=== PATIENT | male | born 1960 | race Caucasian/White ===

== ENCOUNTER 2018-01-01 17:07 | Inpatient (IN) | payer OTHER ==
[~2018-01-01] VITALS: Ht 170.2 cm; Wt 69.3 kg
[2018-01-01] MEDS ORDERED: ASPIRIN 81 MG CHEWABLE TABLET PO ONE (19:15)
[2018-01-01 19:17] LABS: BASOPHILS % (AUTO) 0.3 % (0.0-2.0); EOSINOPHILS % (AUTO) 0.9 % (1.0-6.0); HEMATOCRIT 41.4 % (41-53); HEMOGLOBIN 14.6 g/dL (13.5-17.5); LYMPHOCYTES # (AUTO) 2.7 K/uL (1.0-4.8); LYMPHOCYTES % (AUTO) 38.3 % (22.0-44.0); MEAN CORPUSCULAR HEMOGLOBIN 31.1 pg (26.0-34.0); MEAN CORPUSCULAR HGB CONC 35.2 G/dL (31.0-37.0); MEAN CORPUSCULAR VOLUME 88 fL (80-100); MONOCYTES # (AUTO) 0.5 K/uL (0.1-1.0); MONOCYTES % (AUTO) 7.1 % (2.0-9.0); NEUTROPHILS # (AUTO) 3.8 K/uL (1.8-7.7); NEUTROPHILS % (AUTO) 53.4 % (40.0-70.0); PLATELET COUNT (AUTO) 328 K/uL (150-450); RED BLOOD CELL COUNT(AUTO) 4.69 MIL/uL (4.50-5.90)
[2018-01-01 19:23] LABS: APPEARANCE,URINE CLEAR (CLEAR); BILIRUBIN,URINE NEGATIVE (NEGATIVE); GLUCOSE, URINE (UA) NEGATIVE (NEGATIVE); KETONES,URINE NEGATIVE (NEGATIVE); LEUKOCYTE ESTERASE ,URINE NEGATIVE (NEGATIVE); NITRATE,URINE NEGATIVE (NEGATIVE); OCCULT BLOOD,URINE NEGATIVE (NEGATIVE); PH,URINE 6.5 (5.0-8.0); PROTEIN,URINE NEGATIVE (NEGATIVE); UROBILINOGEN,URINE 0.2 mg/dL (<=1.0)
[2018-01-01 19:27] LABS: ANION GAP 11 mmol/L (8-16); CALCIUM, TOTAL 9.4 mg/dL (8.8-10.5); CARBON DIOXIDE 26 mmol/L (22-29); CHLORIDE 104 mmol/L (98-107); CREATININE 0.82 mg/dL (0.60-1.30); GLOMERULAR FILTR. RATE CALC > 60 mL/min (>60); GLUCOSE,RANDOM 86 mg/dL (70-110); POTASSIUM 3.6 mmol/L (3.5-5.1); SODIUM SERUM 141 mmol/L (136-145); UREA NITROGEN, BLOOD 13 mg/dL (7-18)
[2018-01-01 19:41] LABS: B-TYPE NATRIURETIC PEPTIDE 24 pg/mL (0-100)
[2018-01-01 19:51] LABS: ALANINE AMINOTRANSFERASE 24 U/L (12-78); ALBUMIN 3.9 g/dL (3.4-5.0); ALKALINE PHOSPHATASE 68 U/L (46-116); ASPARTATE AMINOTRANSFERASE 18 U/L (15-37); BILIRUBIN,TOTAL 0.3 mg/dL (0.1-1.0); CREATINE KINASE MB 2.5 ng/mL (0-5); CREATINE KINASE, TOTAL 250 U/L (39-308); TOTAL PROTEIN, SERUM 7.9 g/dL (6.4-8.2)
[2018-01-01] MEDS ORDERED: AMLO-512 PO (20:05)
[2018-01-01] MEDS ORDERED: LISI-618 PO (20:05)
[2018-01-01] MEDS ORDERED: ACETAMINOPHEN 325 MG TABLET PO PRN (21:45)
[2018-01-01] MEDS ORDERED: ONDANSETRON HCL 4 MG/2 ML VIAL IVP PRN ×2 (21:45→22:45)
[2018-01-01] MEDS ORDERED: 0.9% SODIUM CHLORIDE 10 ML SYRINGE IVP PRN ×2 (21:45→22:45)
[2018-01-01] MEDS ORDERED: ZOLPIDEM TARTRATE 5 MG TABLET PO PRN (22:45)
[2018-01-01] MEDS ORDERED: MAGNESIUM OXIDE 400 MG TABLET PO PRN (23:00)
[2018-01-01] MEDS ORDERED: MAGNESIUM SULFATE 2 GM/WATER 50 ML IV PRN (23:00)
[2018-01-01] MEDS ORDERED: POTASSIUM CHL 10 MEQ/WATER 50 ML IV PRN (23:00)
[2018-01-01] MEDS ORDERED: POTASSIUM CHLORIDE 20 MEQ ER TABLET PO PRN (23:00)
[2018-01-01] MEDS ORDERED: MAGNESIUM SULFATE 4 GM/WATER 100 ML IV PRN (23:00)
[2018-01-01] MEDS: AmLODIPine BESYLATE 10 MG TABLET PO SCH (23:22)
[2018-01-01] MEDS: DOCUSATE SODIUM 100 MG CAPSULE PO SCH (23:22)
[2018-01-02] MEDS: ACETAMINOPHEN 325 MG TABLET PO PRN ×2 (00:14→08:21)
[2018-01-02] MEDS: HEPARIN SODIUM,PORCINE 5,000 UNITS/ML VIAL SQ SCH ×3 (00:15→15:30)
[2018-01-02 04:00] VITALS: BP_SYST 152
[2018-01-02 05:14] LABS: BASOPHILS % (AUTO) 0.2 % (0.0-2.0); EOSINOPHILS % (AUTO) 1.5 % (1.0-6.0); HEMATOCRIT 41.3 % (41-53); HEMOGLOBIN 14.4 g/dL (13.5-17.5); LYMPHOCYTES # (AUTO) 2.3 K/uL (1.0-4.8); LYMPHOCYTES % (AUTO) 38.1 % (22.0-44.0); MEAN CORPUSCULAR HEMOGLOBIN 30.6 pg (26.0-34.0); MEAN CORPUSCULAR HGB CONC 34.8 G/dL (31.0-37.0); MEAN CORPUSCULAR VOLUME 88 fL (80-100); MONOCYTES # (AUTO) 0.5 K/uL (0.1-1.0); MONOCYTES % (AUTO) 7.9 % (2.0-9.0); NEUTROPHILS # (AUTO) 3.2 K/uL (1.8-7.7); NEUTROPHILS % (AUTO) 52.3 % (40.0-70.0); PLATELET COUNT (AUTO) 317 K/uL (150-450); RED CELL DISTRIBUTION WIDTH 12.8 % (11.5-14.5)
[2018-01-02 05:26] LABS: ALBUMIN 3.7 g/dL (3.4-5.0); ANION GAP 9 mmol/L (8-16); CALCIUM, TOTAL 8.7 mg/dL (8.8-10.5); CARBON DIOXIDE 28 mmol/L (22-29); CHLORIDE 105 mmol/L (98-107); CREATININE 0.86 mg/dL (0.60-1.30); GLOMERULAR FILTR. RATE CALC > 60 mL/min (>60); GLUCOSE,RANDOM 96 mg/dL (70-110); POTASSIUM 3.8 mmol/L (3.5-5.1); SODIUM SERUM 142 mmol/L (136-145); UREA NITROGEN, BLOOD 12 mg/dL (7-18)
[2018-01-02] MEDS: DOCUSATE SODIUM 100 MG CAPSULE PO SCH ×2 (07:38→21:13)
[2018-01-02 08:00] VITALS: BP 136/82
[2018-01-02] MEDS: ASPIRIN 81 MG EC TABLET PO SCH (08:20)
[2018-01-02] MEDS: LISINOPRIL 20 MG TABLET PO SCH (08:20)
[2018-01-02] MEDS: PANTOPRAZOLE SODIUM 40 MG/VIAL IVP SCH (08:22)
[2018-01-02 12:00] VITALS: BP 158/30
[2018-01-02 16:00] VITALS: BP 118/73
[2018-01-02 20:00] VITALS: BP 157/63
[2018-01-02] MEDS: AmLODIPine BESYLATE 10 MG TABLET PO SCH (21:13)
[2018-01-03] VITALS (8 sets, daily range): BP systolic 100–145; BP diastolic 53–95
[2018-01-03] MEDS: PANTOPRAZOLE SODIUM 40 MG/VIAL IVP SCH (08:11)
[2018-01-03] MEDS: HEPARIN SODIUM,PORCINE 5,000 UNITS/ML VIAL SQ SCH ×3 (08:11→15:56)
[2018-01-03] MEDS: DOCUSATE SODIUM 100 MG CAPSULE PO SCH ×2 (08:12→20:53)
[2018-01-03] MEDS: LISINOPRIL 20 MG TABLET PO SCH (08:12)
[2018-01-03] MEDS: ASPIRIN 81 MG EC TABLET PO SCH (08:12)
[2018-01-03] MEDS ORDERED: SESTAMIBI TC99M/UD ISOTOPE 1 EA INJ INJ ONE ×2 (10:20→12:20)
[2018-01-03] MEDS: AmLODIPine BESYLATE 10 MG TABLET PO SCH (20:54)
[2018-01-04] VITALS: BP 137/81
[2018-01-04] MEDS: HEPARIN SODIUM,PORCINE 5,000 UNITS/ML VIAL SQ SCH ×2 (00:11→09:14)
[2018-01-04 04:00] VITALS: BP 104/64
[2018-01-04 08:00] VITALS: BP 145/77
[2018-01-04] MEDS: ASPIRIN 81 MG EC TABLET PO SCH (09:14)
[2018-01-04] MEDS: LISINOPRIL 20 MG TABLET PO SCH (09:14)
[2018-01-04] MEDS: DOCUSATE SODIUM 100 MG CAPSULE PO SCH (09:15)
[2018-01-04] MEDS: PANTOPRAZOLE SODIUM 40 MG/VIAL IVP SCH (09:15)
[2018-01-04 12:00] VITALS: BP 155/80
[2018-01-04] MEDS ORDERED: ASPI-556 PO (14:03)
== END 2018-01-04 14:25 | disposition home or self-care (01) | DRG 198 ==
LOC: EMS 17:09 → ICU 21:00 → UNDOADMIN 21:00 → 5N 21:00 → ICU 01-03 18:15
PROVIDERS: ADMIT Internal Medicine; ATTEND Internal Medicine
DX: I20.0 Unstable angina (principal); F17.210 Nicotine dependence, cigarettes, uncomplicated; I10 Essential (primary) hypertension; J44.9 Chronic obstructive pulmonary disease, unspecified
CPT/HCPCS: 78452; 83735; 87081; 93005; 93017; 93306; 99285; A9500; C9113; J1644